=== PATIENT | female | born 1960 | race Caucasian/White ===

== ENCOUNTER 2018-08-05 01:31 | Inpatient (IN) | payer OTHER ==
[~2018-08-05] VITALS: Ht 160 cm; Wt 70.0 kg
[2018-08-05 01:37] VITALS: Ht 160 cm; Wt 70.0 kg
[2018-08-05 02:54] LABS: BASOPHIL % 0.5 % (0-2); PLATELET COUNT 194 x10^3mcL (130-400); RED CELL DISTRIBUTION WIDTH 13.9 % (11.5-14.5)
[2018-08-05 03:30] LABS: CALCIUM 8.8 mg/dL (8.5-10.1); CARBON DIOXIDE 27.3 mmol/L (21-32); CHLORIDE SERUM 103 mmol/L (98-107); CREATININE SERUM 0.6 mg/dL (0.6-1.0); GFR1 > 60 mL/min; GLUCOSE SERUM 105 mg/dL (74-106); POTASSIUM SERUM 3.3 mmol/L (3.5-5.1); SODIUM SERUM 138 mmol/L (136-145)
[2018-08-05 03:34] LABS: ALKALINE PHOSPHATASE 129 U/L (46-116); ALT/SGPT 30 U/L (14-59); AST/SGOT 24 U/L (15-37); BILIRUBIN TOTAL 0.2 mg/dL (0.20-1.00); TOTAL PROTEIN, SERUM 6.5 g/dL (6.4-8.2)
[2018-08-05] MEDS ORDERED: SEROQUEL25 MG PO (04:54)
[2018-08-05] MEDS ORDERED: MAC100 PO (04:55)
[2018-08-05] MEDS ORDERED: NOR10 PO (04:55)
[2018-08-05] MEDS ORDERED: METFORMIN HYDR500 M1 PO (04:57)
[2018-08-05] MEDS ORDERED: ZYPREXA10 M1 PO (04:58)
[2018-08-05] MEDS ORDERED: ZYPREXA5 M1 PO (05:00)
[2018-08-05 06:04] VITALS: BP 160/79
[2018-08-05 07:10] LABS: FREE THYROXINE INDEX 1.9 ug/dL (1.4-4.5)
[2018-08-05 07:13] LABS: FREE T4 0.84 ng/dL (0.76-1.46); T4(THYROXINE) 5.8 ug/dL (4.7-13.3)
[2018-08-05 07:54] LABS: CHOLESTEROL/HDL RATIO 3.3; MAGNESIUM 1.5 mg/dL (1.8-2.4); PHOSPHOROUS 3.5 mg/dL (2.5-4.9)
[2018-08-05 08:22] LABS: T3 TOTAL 1.37 ng/mL
[2018-08-05 09:16] VITALS: BP 138/80
[2018-08-05 09:54] LABS: microscopic required? NO
[2018-08-05 11:14] LABS: urine erythrocyte NEGATIVE (NEGATIVE)
[2018-08-05 11:27] LABS: AMPHETAMINE QUAL UR POSITIVE (See below)
[2018-08-05 13:37] VITALS: BP 157/78
[2018-08-05 17:48] VITALS: BP 130/86
[2018-08-05 21:15] VITALS: BP 145/77
[2018-08-06 05:42] VITALS: BP 146/76
[2018-08-06 06:32] LABS: CALCIUM 9.3 mg/dL (8.5-10.1); CARBON DIOXIDE 26.6 mmol/L (21-32); CHLORIDE SERUM 103 mmol/L (98-107); CREATININE SERUM 0.6 mg/dL (0.6-1.0); GFR1 > 60 mL/min; GLUCOSE SERUM 104 mg/dL (74-106); MAGNESIUM 1.8 mg/dL (1.8-2.4); PHOSPHOROUS 3.5 mg/dL (2.5-4.9); POTASSIUM SERUM 4.1 mmol/L (3.5-5.1); SODIUM SERUM 136 mmol/L (136-145)
[2018-08-06 06:47] LABS: BASOPHIL % 0.5 % (0-2); PLATELET COUNT 212 x10^3mcL (130-400); RED CELL DISTRIBUTION WIDTH 13.1 % (11.5-14.5)
[2018-08-06 07:13] VITALS: BP 147/71
[2018-08-06 12:13] VITALS: BP 117/60
[2018-08-06 16:58] VITALS: BP 149/70
[2018-08-06 22:00] VITALS: BP 134/65
[2018-08-07 05:26] VITALS: BP 127/58
[2018-08-07 09:45] VITALS: BP 153/83
[2018-08-07 10:46] VITALS: BP 153/83
== END 2018-08-07 11:43 | DRG 206 ==
LOC: ED 01:31 → DU 04:00
PROVIDERS: Emergency Medicine; Internal Medicine
DX: M94.0 Chondrocostal junction syndrome [Tietze] (principal); E44.1 Mild protein-calorie malnutrition; E87.6 Hypokalemia; E11.65 Type 2 diabetes mellitus with hyperglycemia; E78.5 Hyperlipidemia, unspecified; I11.9 Hypertensive heart disease without heart failure; I25.10 Atherosclerotic heart disease of native coronary artery without angina pectoris; J44.9 Chronic obstructive pulmonary disease, unspecified; M79.7 Fibromyalgia; F31.9 Bipolar disorder, unspecified; F43.10 Post-traumatic stress disorder, unspecified; F15.11 Other stimulant abuse, in remission; F17.210 Nicotine dependence, cigarettes, uncomplicated; Z68.29 Body mass index [BMI] 29.0-29.9, adult; Z85.6 Personal history of leukemia; Z92.3 Personal history of irradiation; Z79.84 Long term (current) use of oral hypoglycemic drugs; Z95.5 Presence of coronary angioplasty implant and graft
CPT/HCPCS: 82962; 83880; 84439; 85378; 90658; J7030; Q0092; Q9967